=== PATIENT | female | born 1975 | race Caucasian/White ===

== ENCOUNTER 2017-01-03 16:41 | Emergency (ER) | payer MEDICAID ==
[~2017-01-03] VITALS: Ht 157.5 cm; Wt 83.6 kg
[2017-01-03 16:45] VITALS: BP 155/107
== END 2017-01-03 17:30 | disposition home or self-care (01) ==
LOC: ED 17:25
DX: K02.9 Dental caries, unspecified (principal); K04.7 Periapical abscess without sinus
CPT/HCPCS: 99283